=== PATIENT | female | born 1935 | race African-American/Black ===

== ENCOUNTER 2017-08-16 11:00 | Outpatient (RCR) | payer OTHER ==
[~2017-08-16 11:00] MED LIST: BENAZEPRIL HCL20 MG ORAL; DILTIAZEM ER300 MG PO; ECOTRIN81 MG ORAL; HYDROCHLOROTHIA25 MG ORAL; PROTONIX40 MG ORAL
== END 2017-08-20 | disposition home or self-care (01) ==
LOC: PTY 11:00
DX: M54.5 Low back pain (principal); G89.29 Other chronic pain

== ENCOUNTER 2017-08-24 10:35 | Outpatient (RCR) | payer OTHER | END 2017-09-20 | disposition home or self-care (01) | LOC: PTY 10:35 | DX: M54.5 Low back pain (principal); G89.29 Other chronic pain ==